=== PATIENT | female | born 2000 ===

== ENCOUNTER 2024-05-04 15:30 | Outpatient (REF) | payer OTHER, SELFPAY ==
[2024-05-06 12:18] LABS: Chlamydia Result Negative (Negative); GC Result Negative (Negative)
== END 2024-05-04 15:31 | disposition home or self-care (01) ==
LOC: LBN 15:30
PROVIDERS: Visit Provider Nurse Practitioner Women's Health
DX: Z11.3 Encounter for screening for infections with a predominantly sexual mode of transmission (principal)
CPT/HCPCS: 87491; 87591